=== PATIENT | female | born 1985 ===

== ENCOUNTER → 2021-05-30 09:37 | Outpatient (BNVA) | payer OTHER, SELFPAY | PROVIDERS: PCP Internal Medicine; Visit Provider Nurse Practitioner Family | DX: G43.909 Migraine, unspecified, not intractable, without status migrainosus (principal); R20.2 Paresthesia of skin; R53.1 Weakness; R06.83 Snoring; R40.0 Somnolence | CPT/HCPCS: 99202 ==

== ENCOUNTER 2021-06-21 08:42 | Outpatient (REF) | payer OTHER, SELFPAY | END 2021-06-21 08:43 | disposition home or self-care (01) | LOC: HO.MRI 08:42 | PROVIDERS: Visit Provider Nurse Practitioner Family | DX: Z13.89 Encounter for screening for other disorder (principal) ==

== ENCOUNTER 2022-09-22 20:31 | Emergency (ER) | payer OTHER, SELFPAY ==
--- NOTE | ~2022-09-22 | XR_ITS ---
EXAMINATION: XR FINGER, LEFT CLINICAL INFORMATION: Trauma. Pain. COMPARISON: None available. TECHNIQUE: 3 views of the left 2nd digit. FINDINGS: The bones and soft tissues are normal. No fracture. Alignment is anatomic. Joint spaces are maintained. XR/XR finger LT min 2V IMPRESSION: No significant abnormality identified.
--- NOTE | ~2022-09-22 | XR_ITS ---
EXAMINATION: XR SHOULDER, RIGHT CLINICAL INFORMATION: Dog bite COMPARISON: None available. TECHNIQUE: Three views of the right shoulder. FINDINGS: The bones and soft tissues are normal. No fracture. Glenohumeral and acromioclavicular alignment is anatomic with normal joint space. No abnormal soft tissue calcifications. XR/XR shoulder RT min 2V IMPRESSION: Normal right shoulder.
--- NOTE | ~2022-09-22 | XR_ITS ---
EXAMINATION: XR FOREARM, RIGHT CLINICAL INFORMATION: Dog bite COMPARISON: None available. TECHNIQUE: AP and lateral views of the right forearm were obtained. FINDINGS: Bone alignment is normal. No fracture or dislocation. Normal joint spaces. There is a faintly radiopaque density in the soft tissues of the radial or lateral and volar forearm measuring 2 x 4 mm. This may be in the region of soft tissue trauma. There is a 2 x 4 mm radiopaque density projecting over the soft tissues of the volar wrist appreciated on the lateral view only. XR/XR forearm RT 2V IMPRESSION: No fracture or dislocation. Two 2 x 4 mm radiopaque densities in the soft tissues as described above.
[2022-09-22 21:34] VITALS: BP 178/108; PULSE 90; O2SAT 98
[2022-09-22 21:40] VITALS: BP 154/66; PULSE 63; RESP 18; TEMP 36.9; O2SAT 100; BMI 41.8
[2022-09-22] MEDS: Acetaminophen 325 MG TABLET 975 MG PO (21:52)
[2022-09-22] MEDS: Ibuprofen 800 MG TABLET PO (22:32)
--- NOTE | 2022-09-22 22:33 | ED.GENADULT ---
HPI - General Adult General Chief complaint: Animal Bite Stated complaint: DOG BITE TO R FOREARM Time Seen by Provider: 09/22/22 22:06 Source: patient, RN notes reviewed and old records reviewed Mode of arrival: ambulatory Limitations: no limitations History of Present Illness HPI narrative: 37-year-old female presents for evaluation a dog bite. Patient reports that her daughter fell down the stairs and was screaming in pain. When the patient went to help her daughter ?I think the dog thought that I was hurting her so attacked me. ? The dog was a family dog is up to date on its vaccines Is a diallo retriever The patient was bit mostly on the right forearm She has 1 puncture wound of the left hand She has a scratch on her right thigh The patient is unsure when her last tetanus shot was She reports pain mostly to the right hand/arm but states that her left hand does not hurt She has a penicillin allergy Related Data Home Medications Medication Instructions Recorded Confirmed albuterol sulfate 90 mcg/actuation 2 puff inhalation Q6H PRN 05/30/21 05/30/21 aerosol inhaler fluticasone propionate 50 1 inh inhalation BID 05/30/21 05/30/21 mcg/actuation blister powder for inhalation (Flovent Diskus) Previous Rx's Medication Instructions Recorded magnesium oxide 400 mg (241.3 mg 400 mg PO BEDTIME 30 days #30 tabs 05/30/21 magnesium) tablet riboflavin (vitamin B2) 400 mg 400 mg PO DAILY 30 days #30 tabs 05/30/21 tablet sumatriptan succinate 100 mg tablet 50 - 100 mg PO Q2H PRN migraine 05/30/21 headache 30 days #12 tabs topiramate 25 mg tablet See Rx Instructions PO BEDTIME 30 05/30/21 days #60 tabs alprazolam 0.5 mg tablet 0.5 mg PO BID PRN anxiety 1 day #2 06/25/21 tabs doxycycline hyclate 100 mg tablet 100 mg PO BID #9 tabs 09/22/22 metronidazole 500 mg tablet 500 mg PO TID #14 tabs 09/22/22 Allergies Allergy/AdvReac Type Severity Reaction Status Date / Time Penicillins [PENICILLINS] Allergy Unknown SWELLING Verified 05/30/21 10:24 AND RASH shrimp Allergy Unknown SWELLING Verified 05/30/21 10:24 From REGLAN Allergy Unknown AGITATION Uncoded 11/03/19 18:13 pcn Allergy Unknown rash Uncoded 11/15/12 00:00 Review of Systems Musculoskeletal: Musculoskeletal: Reports arthralgias, Reports joint swelling, Reports limited range of motion, Reports radiating pain into limb and Reports stiffness Integumentary/Breasts: Skin/Breast: Reports wounds PMFSH Past Medical History Surgical History (Updated 05/30/21 @ 10:26 by DANDRE Garcia) Hx of cholecystectomy Social History Social History (Updated 05/30/21 @ 10:26 by DANDRE Garcia) Alcohol intake: current Alcohol intake frequency: holidays/special occasions only Patient Tobacco Use Status: Never used Tobacco Advance Directives: No Advance Directives Information Provided: No Physical Exam ED Vital Signs: Vital Signs - 24 hr 09/22/22 21:40 Temperature 98.5 F Pulse Rate 63 Respiratory Rate 18 Blood Pressure 154/66 H Pulse Oximetry 100 Oxygen Delivery Method Room Air BMI result Body Mass Index 41.8 Const General: healthy appearing, comfortable, no acute distress, alert and awake Nutritional Appearance: well nourished Orientation/consciousness: patient oriented x3 HENMT Head: Yes normocephalic and Yes atraumatic Eyes Eyelids: Yes eyelids normal Conjunctivae: conjunctivae normal Sclerae: sclerae normal Corneas: corneas normal Pupils: Equal, round and reactive pupils present EOM: EOMs intact bilaterally Neck Neck: Yes full ROM Resp Effort & Inspection: normal respiratory effort, able to speak in complete sentences and not labored Skin Other: Patient has a small, 1 cm laceration to the dorsal surface of the right forearm with minimal bleeding. She has a small, superficial puncture wound to the right ventral forearm, no active bleeding. There is a 1 cm linear laceration the left 2nd finger on the dorsal surface just distal to the MCP joint. Very minimal active bleeding. Patient has a very superficial abrasion to right anterior upper leg and right posterior upper leg. She is able to move all extremities. She has some pain in her right shoulder when lifting her right upper extremity above the shoulder. General skin exam: elasticity normal Neuro General: patient oriented x3 Cranial nerves: Yes Equal, round and reactive pupils present and Yes Bilaterally intact EOM present Cognition (Neuro): normal cognition Course Reevaluation(s) Reevaluation #1: By radiology reports concern for radiopaque foreign body in the right forearm. This is not appreciable on exam. The wounds were cleaned, thoroughly irrigated Time: 23:07 Medications Administered Discontinued Medications Generic Name Dose Route Start Last Admin Trade Name Eugene PRN Reason Stop Dose Admin Acetaminophen 975 mg 09/22/22 21:46 09/22/22 21:52 Acetaminophen 325 Mg Tablet PO 09/22/22 21:47 975 mg ONCE ONE Administration Diphtheria/Tetanus/Acell Pertussis 0.5 ml 09/22/22 22:30 09/22/22 22:37 Diphth,Pertus(Acell),Tet Adult 0.5 Ml Syringe IM 09/22/22 22:31 0.5 ml .ONCE ONE Administration Doxycycline Monohydrate 100 mg 09/22/22 22:30 09/22/22 22:37 Doxycycline Monohydrate 100 Mg Capsule PO 09/22/22 22:31 100 mg ONCE ONE Administration Ibuprofen 800 mg 09/22/22 22:27 09/22/22 22:32 Ibuprofen 800 Mg Tablet PO 09/22/22 22:28 800 mg ONCE ONE Administration Metronidazole 500 mg 09/22/22 22:30 09/22/22 22:37 Metronidazole 500 Mg Tablet PO 09/22/22 22:31 500 mg ONCE ONE Administration Medical Decision Making Medical Decision Making MDM Narrative: 37-year-old female presents for evaluation of a dog bite. The dog is up-to-date on vaccine as it is their family dog. The patient has 2 small lacerations, both 1 cm or less that do not require sutures as it was a dog bite and there is a high risk of infection. No large, gaping wounds that would require secondary closure. Patient's tetanus shot was updated. X-rays of the right forearm and shoulder were ordered in triage. I added on an x-ray of the left 2nd finger given this area has a laceration and is edematous to rule out open fracture. The patient will be discharged on antibiotics regardless as the bite is over a joint. The patient be discharged with doxycycline and metronidazole and she has an allergy to penicillin. Differential Diagnosis Dog bite Puncture wound Laceration Contusion Hand sprain Fracture Dislocation Independent Interpretation I performed an independent interpretation of an: Plain X-Ray (No obvious fracture to the right shoulder or forearm) Radiology Impression Discussion of test interpretation with radiology: I have reviewed the radiologist's reading. Radiologist Impression: Concern for radiopaque foreign body in the right forearm. Discharge Plan Discharge Clinical Impression: Dog bite of arm Patient Disposition: Home, Self-Care Instructions: Animal Bite (ED) Additional Instructions: Take both antibiotics as directed Do not drink alcohol while taking these antibiotics, as it will make you very sick Your tetanus was updated today Use ibuprofen or Tylenol for pain Follow-up with your primary doctor Prescriptions: New doxycycline hyclate 100 mg tablet 100 mg PO BID Qty: 9 0RF metronidazole 500 mg tablet 500 mg PO TID Qty: 14 0RF No Action alprazolam 0.5 mg tablet 0.5 mg PO BID PRN (Reason: anxiety) 1 Days Qty: 2 0RF Rx Instructions: 30 minutes before MRI, may repeat x's 1 albuterol sulfate 90 mcg/actuation HFA aerosol inhaler 2 puff inhalation Q6H PRN Flovent Diskus 50 mcg/actuation blister with device 1 inh inhalation BID magnesium oxide 400 mg (241.3 mg magnesium) tablet 400 mg PO BEDTIME 30 Days Qty: 30 6RF riboflavin (vitamin B2) 400 mg tablet 400 mg PO DAILY 30 Days Qty: 30 6RF topiramate 25 mg tablet See Rx Instructions PO BEDTIME 30 Days Qty: 60 3RF Rx Instructions: 1 tab qhs x's 2 weeks, then 2 tabs qhs PO bedtime; sumatriptan succinate 100 mg tablet 50 - 100 mg PO Q2H PRN (Reason: migraine headache) 30 Days Qty: 12 3RF Rx Instructions: at onset of migraine, may repeat in 2 hrs, max 2 tabs/day and 4 tabs/week
[2022-09-22] MEDS: metroNIDAZOLE 500 MG TABLET PO (22:37)
[2022-09-22] MEDS: Diphth,Pertus(ACell),Tet Adult 0.5 ML SYRINGE IM (22:37)
[2022-09-22] MEDS: Doxycycline Monohydrate 100 MG CAPSULE PO (22:37)
--- NOTE | 2022-09-22 22:41 | PC.NURSE ---
pt medicated per APR- tetanus adm to left deltoid
== END 2022-09-22 23:52 | disposition home or self-care (01) ==
PROVIDERS: Emergency Provider Internal Medicine; PCP Internal Medicine
DX: S51.831A Puncture wound without foreign body of right forearm, initial encounter (principal); W54.0XXA Bitten by dog, initial encounter; Y93.9 Activity, unspecified; Y92.9 Unspecified place or not applicable; Y99.9 Unspecified external cause status
CPT/HCPCS: 73030; 73090; 73140; 90471; 90715; 99283; 99284

== ENCOUNTER 2022-11-07 19:36 | Emergency (ER) | payer OTHER, SELFPAY ==
--- NOTE | 2022-11-07 | ECG_ITS ---
Test Reason : CHEST PAIN Blood Pressure : / mmHG Vent. Rate : 107 BPM Atrial Rate : 174 BPM P-R Int : 128 ms QRS Dur : 078 ms QT Int : 468 ms P-R-T Axes : 016 014 047 degrees QTc Int : 624 ms Sinus tachycardia with Premature atrial complexes with Aberrant conduction Prolonged QT Abnormal ECG When compared with ECG of 06-MAR-2011 20:43, Aberrant conduction is now Present Vent. rate has increased BY 46 BPM QT has lengthened Referred By: Generic ED Physician Electronically Signed By:TORREY VILLANUEVA
--- NOTE | ~2022-11-07 | XR_ITS ---
EXAMINATION: XR CHEST CLINICAL INFORMATION: Chest pain. COMPARISON: 03/06/2011 TECHNIQUE: Frontal view of the chest was obtained. FINDINGS: The cardiomediastinal silhouette is normal. There is no focal lung consolidation or pleural effusion. The bony structures and soft tissues are unremarkable. XR/XR chest 1V IMPRESSION: No active cardiopulmonary disease.
[2022-11-07 19:41] VITALS: BP 127/69; PULSE 92; O2SAT 99
[2022-11-07 20:26] VITALS: BP 144/84; PULSE 81; RESP 16; TEMP 36.9; O2SAT 98; BMI 43.0
--- NOTE | 2022-11-07 20:27 | ED.GENADULT ---
HPI - General Adult General Chief complaint: Chest Pain Stated complaint: chest painx2 days, anxiety Time Seen by Provider: 11/07/22 21:54 Source: patient Mode of arrival: ambulatory Limitations: no limitations History of Present Illness HPI narrative: Patient's history of anxiety been having poor sleep lately also complaining of mid chest pain sharp comes and goes with extra heartbeats feeling no syncope no difference with movements or deep breath no history of coronary disease or risk factors Related Data Home Medications Medication Instructions Recorded Confirmed albuterol sulfate 90 mcg/actuation 2 puff inhalation Q6H PRN 05/30/21 05/30/21 aerosol inhaler fluticasone propionate 50 1 inh inhalation BID 05/30/21 05/30/21 mcg/actuation blister powder for inhalation (Flovent Diskus) Previous Rx's Medication Instructions Recorded magnesium oxide 400 mg (241.3 mg 400 mg PO BEDTIME 30 days #30 tabs 05/30/21 magnesium) tablet riboflavin (vitamin B2) 400 mg 400 mg PO DAILY 30 days #30 tabs 05/30/21 tablet sumatriptan succinate 100 mg tablet 50 - 100 mg (0.5 - 1 x 100 mg) PO 05/30/21 Q2H PRN migraine headache 30 days #12 tabs topiramate 25 mg tablet See Rx Instructions PO BEDTIME 30 05/30/21 days #60 tabs alprazolam 0.5 mg tablet 0.5 mg PO BID PRN anxiety 1 day #2 06/25/21 tabs doxycycline hyclate 100 mg tablet 100 mg PO BID #9 tabs 09/22/22 metronidazole 500 mg tablet 500 mg PO TID #14 tabs 09/22/22 alprazolam 0.5 mg tablet (Xanax) 0.5 mg PO BID PRN anxiety #20 tabs 11/07/22 Allergies Allergy/AdvReac Type Severity Reaction Status Date / Time Penicillins [PENICILLINS] Allergy Unknown SWELLING Verified 11/07/22 20:26 AND RASH shrimp Allergy Unknown SWELLING Verified 11/07/22 20:26 From REGLAN Allergy Unknown AGITATION Uncoded 11/07/22 20:26 pcn Allergy Unknown rash Uncoded 11/07/22 20:26 Review of Systems Review of Systems: Yes all other systems are reviewed and are negative PMFSH Past Medical History Surgical History Hx of cholecystectomy Social History Social History Alcohol intake: never Patient Tobacco Use Status: Never used Tobacco Smoked in Last 30 Days: No Use of substances other than those prescribed or required for medical reasons: Yes Substance Use Type: Marijuana Advance Directives: No Advance Directives Information Provided: Yes Physical Exam ED Vital Signs: Vital Signs - 24 hr 11/07/22 20:26 Temperature 98.4 F Pulse Rate 81 Respiratory Rate 16 Blood Pressure 144/84 H Pulse Oximetry 98 Oxygen Delivery Method Room Air BMI result Body Mass Index 43.0 Appearance: Alert. Oriented X3. No acute distress anxious Eyes: PERRLA, No Nystagmus ENT: Pharynx normal. Oral Mucosa moist Neck: Normal inspection. Neck supple. CVS: Normal heart rate and rhythm. Pulses normal. Respiratory: No respiratory distress. Equal air entry bilateral, no wheezing/rales/rhonchi Abdomen: Soft and nontender. Bowel sounds are present, no mass palpable, no CVA tenderness Skin: Skin warm and dry. Normal skin color. Normal skin turgor. Extremities: No lower extremity edema. No calf tenderness Neuro: Oriented X 3. No motor deficit. No sensory deficit.No cerebellar signs , cranial nerves II-XII intact Course Course Course Narrative: This is an RME: Additional HPI, ROS, PE not included below will be deferred to primary provider. 37-year-old female presents with anxiety, chest pain, syncope, patient reports she has been having chest discomfort substernal nature of the past few days, today prior to coming to the emergency department her cousin got bit by a dog, she watched she got nervous, ended up passing out, since then chest pain worsening. No head strike that she knows of. Physical examination benign Plan labs, imaging Medications Administered Discontinued Medications Generic Name Dose Route Start Last Admin Trade Name Freq PRN Reason Stop Dose Admin Lorazepam 1 mg 11/07/22 22:23 11/07/22 22:43 Lorazepam 1 Mg Tablet PO 11/07/22 22:24 1 mg ONCE ONE Administration Medical Decision Making Medical Decision Making MDM Narrative: Patient has increased anxiety does not have any anxiety medication at home unable to sleep for last few days comes with atypical chest pain lasting for few seconds sharp pain normal cardiogram normal high sensitive troponin discharge patient home on alprazolam for anxiety Differential Diagnosis Differential Diagnoses: The differential diagnosis associated with the presentation includes ACS/pericarditis/anxiety Lab Data MDM Lab Attestation statement: I reviewed the patient's lab results. 11/07/22 21:01 11/07/22 21:01 Labs: Lab Results 11/07/22 Range/Units 21:01 WBC 11.7 H (4.8-10.8) X10*3/uL RBC 4.81 (4.20-5.50) X10*6/uL Hgb 13.5 (12.0-16.0) g/dl Hct 41.4 (37.0-47.0) % MCV 86.1 (80.0-98.0) fL MCH 28.1 (27.0-33.0) pg MCHC 32.6 (31.0-35.0) g/dl RDW 12.7 (11.0-16.0) % Plt Count 274 (160-400) X10*3/uL MPV 10.2 (9.4-12.3) fL Immature Gran % (Auto) 0.4 (0.0-0.4) % Neut % (Auto) 79.2 H (45-73) % Lymph % (Auto) 14.1 L (20-40) % [place] % (Auto) 5.5 (2-11) % Eos % (Auto) 0.5 (0-4) % Baso % (Auto) 0.3 (0-2) % Lymph # (Auto) 1.7 (1.2-4.9) X10*3/uL [place] # (Auto) 0.7 (0.1-1.2) X10*3/uL Eos # (Auto) 0.1 (0.0-0.4) X10*3/uL Baso # (Auto) 0.0 (0.0-0.2) X10*3/uL Abs Immat Gran (auto) 0.05 H (0.00-0.03) X10*3/uL Absolute Neuts (auto) 9.3 H (2.0-8.3) x10*3/uL Absolute Nucleated RBC 0.000 (0.0-0.012) X10*3/uL Nucleated RBC % (auto) 0.0 (0.0-0.2) /100WBC Sodium 139 (135-145) mmol/L Potassium 4.1 (3.3-5.1) mmol/L Chloride 107 (96-108) mmol/L Carbon Dioxide 21 L (22-29) mmol/L Anion Gap 15 (12-20) BUN 13 (9-16) mg/dL Creatinine 0.94 (0.5-1.4) mg/dL Estim Creat Clear Calc 97.7 Estimated GFR > 60 Random Glucose 100 (60-115) mg/dL Calcium 9.4 (8.4-10.2) mg/dL Magnesium 2.0 (1.6-2.6) mg/dL Total Bilirubin 0.3 (0.0-1.0) mg/dL AST 14 (5-31) U/L ALT 11 (0-31) U/L Alkaline Phosphatase 70 (39-117) U/L Troponin I High Sens < 2.7 (<3.5-17.0) ng/L B-Natriuretic Peptide 24 (<100) pg/mL Total Protein 7.9 (6.5-8.0) g/dL Albumin 4.2 (3.5-5.0) g/dL Independent Interpretation I performed an independent interpretation of an: EKG Interpretation: Sinus tachycardia with PACs heart rate 107 no acute injury of change in no acute ischemia Discharge Plan Discharge Clinical Impression: Atypical chest pain, Anxiety Patient Disposition: Home, Self-Care Instructions: Chest Pain (ED), Anxiety (ED) Additional Instructions: Rest at home Medication for anxiety as prescribed Follow-up with PCP if any concerns Prescriptions: New alprazolam [Xanax] 0.5 mg tablet 0.5 mg PO BID PRN (Reason: anxiety) Qty: 20 0RF No Action alprazolam 0.5 mg tablet 0.5 mg PO BID PRN (Reason: anxiety) 1 Days Qty: 2 0RF Rx Instructions: 30 minutes before MRI, may repeat x's 1 doxycycline hyclate 100 mg tablet 100 mg PO BID Qty: 9 0RF metronidazole 500 mg tablet 500 mg PO TID Qty: 14 0RF albuterol sulfate 90 mcg/actuation HFA aerosol inhaler 2 puff inhalation Q6H PRN Flovent Diskus 50 mcg/actuation blister with device 1 inh inhalation BID magnesium oxide 400 mg (241.3 mg magnesium) tablet 400 mg PO BEDTIME 30 Days Qty: 30 6RF riboflavin (vitamin B2) 400 mg tablet 400 mg PO DAILY 30 Days Qty: 30 6RF topiramate 25 mg tablet See Rx Instructions PO BEDTIME 30 Days Qty: 60 3RF Rx Instructions: 1 tab qhs x's 2 weeks, then 2 tabs qhs PO bedtime; sumatriptan succinate 100 mg tablet 50 - 100 mg PO Q2H PRN (Reason: migraine headache) 30 Days Qty: 12 3RF Rx Instructions: at onset of migraine, may repeat in 2 hrs, max 2 tabs/day and 4 tabs/week Interventions: ED Discharge Assessment Last Done: 11/07/22 23:31 Discharge Date/Time: 11/07/22 23:31
[2022-11-07 21:08] LABS: MANUAL DIFF FLAG NO
[2022-11-07 21:13] LABS: Basophils Percent Auto 0.3 % (0-2); Eosinophils Absolute Auto 0.1 X10*3/uL (0.0-0.4); Eosinophils Percent Auto 0.5 % (0-4); Hematocrit 41.4 % (37.0-47.0); Hemoglobin 13.5 g/dl (12.0-16.0); Imm Gran Abs Auto 0.05 X10*3/uL (0.00-0.03); Imm Gran Pct Auto 0.4 % (0.0-0.4); Lymphocytes Absolute Auto 1.7 X10*3/uL (1.2-4.9); Lymphocytes Percent Auto 14.1 % (20-40); Mean Corpuscular HGB Conc 32.6 g/dl (31.0-35.0); Mean Corpuscular Hemoglobin 28.1 pg (27.0-33.0); Mean Corpuscular Volume 86.1 fL (80.0-98.0); Mean Platelet Volume 10.2 fL (9.4-12.3); Monocytes Absolute Auto 0.7 X10*3/uL (0.1-1.2); Monocytes Percent Auto 5.5 % (2-11); Neutrophils Absolute Auto 9.3 x10*3/uL (2.0-8.3); Neutrophils Percent Auto 79.2 % (45-73); Platelet Count 274 X10*3/uL (160-400); Red Blood Count 4.81 X10*6/uL (4.20-5.50); Red Cell Distribution Width 12.7 % (11.0-16.0); White Blood Count 11.7 X10*3/uL (4.8-10.8)
[2022-11-07 21:28] LABS: Alanine Aminotransferase 11 U/L (0-31); Albumin Level 4.2 g/dL (3.5-5.0); Alkaline Phosphatase 70 U/L (39-117); Anion Gap 15 (12-20); Aspartate Amino Transferase 14 U/L (5-31); Bilirubin Total 0.3 mg/dL (0.0-1.0); Blood Urea Nitrogen 13 mg/dL (9-16); Calcium 9.4 mg/dL (8.4-10.2); Carbon Dioxide 21 mmol/L (22-29); Chloride 107 mmol/L (96-108); Creatinine Clr Calc Pharmacy 97.7; Estimated Glomerular Filt Rate > 60; Glucose Random 100 mg/dL (60-115); Potassium 4.1 mmol/L (3.3-5.1); Sodium 139 mmol/L (135-145); Total Protein 7.9 g/dL (6.5-8.0)
[2022-11-07 21:31] LABS: B Type Natriuretic Peptide 24 pg/mL (<100)
[2022-11-07 21:37] LABS: Troponin-I High Sensitivity < 2.7 ng/L (<3.5-17.0)
--- NOTE | 2022-11-07 21:43 | PC.NURSE ---
pt brought back to room 3, states her anxiety is resolving and chest pressure is also improving 07/26. steady gait, alert oriented, skin pink warm and dry.
[2022-11-07] MEDS: LORazepam 1 MG TABLET PO (22:43)
== END 2022-11-07 23:31 | disposition home or self-care (01) ==
PROVIDERS: Physician Assistant; Emergency Provider Internal Medicine; PCP Internal Medicine
DX: R07.89 Other chest pain (principal); R00.0 Tachycardia, unspecified; F41.1 Generalized anxiety disorder; F43.0 Acute stress reaction; R06.02 Shortness of breath; Z79.899 Other long term (current) drug therapy
CPT/HCPCS: 36415; 71045; 80053; 83735; 83880; 84484; 85025; 93005; 99283; 99284

== ENCOUNTER 2023-01-26 17:23 | Emergency (ER) | payer OTHER, SELFPAY ==
--- NOTE | ~2023-01-26 | XR_ITS ---
Examination: XR hand wrist RT, XR forearm RT 2V Indication: Dog by rule out foreign body Comparison: No pertinent prior studies are currently available for comparison. Technique: 2 views of the right forearm and 5 views of the right hand/wrist. Findings: Soft tissue bandage material overlying the forearm and wrist. Bones are in normal anatomic alignment. I do not appreciate any acute fracture or dislocation. Mild ulnar negative variance of the wrist. On the lateral view of the hand/wrist, there is a small well-corticated 3 mm radiopaque foreign body seen in the superficial soft tissues of uncertain etiology or acuteness. The subtle 3 mm radiopaque foreign body is seen on the lateral view at the level of the distal carpal row but am uncertain if this is in the thenar eminence or hypothenar eminence from this orientation. Unfortunately this is not able to be seen on the other obliquities. XR/XR forearm RT 2V Impression: 3 mm well-corticated radiopaque foreign body seen in the superficial soft tissues of the hand/wrist on the lateral view of uncertain etiology or acuteness. The subtle finding seen on the lateral view at the level of the distal carpal row is not able to be seen on the other obliquities.
--- NOTE | ~2023-01-26 | XR_ITS ---
Examination: XR hand wrist RT, XR forearm RT 2V Indication: Dog by rule out foreign body Comparison: No pertinent prior studies are currently available for comparison. Technique: 2 views of the right forearm and 5 views of the right hand/wrist. Findings: Soft tissue bandage material overlying the forearm and wrist. Bones are in normal anatomic alignment. I do not appreciate any acute fracture or dislocation. Mild ulnar negative variance of the wrist. On the lateral view of the hand/wrist, there is a small well-corticated 3 mm radiopaque foreign body seen in the superficial soft tissues of uncertain etiology or acuteness. The subtle 3 mm radiopaque foreign body is seen on the lateral view at the level of the distal carpal row but am uncertain if this is in the thenar eminence or hypothenar eminence from this orientation. Unfortunately this is not able to be seen on the other obliquities. XR/XR hand wrist RT Impression: 3 mm well-corticated radiopaque foreign body seen in the superficial soft tissues of the hand/wrist on the lateral view of uncertain etiology or acuteness. The subtle finding seen on the lateral view at the level of the distal carpal row is not able to be seen on the other obliquities.
[2023-01-26 17:35] VITALS: BP 158/88; PULSE 78; O2SAT 98
[2023-01-26 18:08] VITALS: BP 156/95; PULSE 66; RESP 20; TEMP 36.4; O2SAT 98; BMI 42.7
--- NOTE | 2023-01-26 18:12 | ED_ITS ---
HPI - Animal Bite General Chief Complaint: Animal Bite Stated Complaint: BIT IN ARM BY [employer] Time Seen by Provider: 01/26/23 19:30 Source: patient Mode of arrival: EMS Limitations: no limitations History of Present Illness HPI narrative: Patient comes to the emergency room after sustaining multiple dog bites in the right forearm. Patient states that this dog was her own dog. The dog has history of being aggressive. Patient has bitten someone in the family at least 10 times. Today, the family decided to call the dog pound and euthanize the dog a severe unprovoked aggression. Patient was seen here about 3 months ago for the same complaint, patient was bitten by her dog, when her last visit patient got a Tdap on 09/22/2022 Related Data Home Medications Medication Instructions Recorded Confirmed albuterol sulfate 90 mcg/actuation 2 puff inhalation Q6H PRN 05/30/21 05/30/21 aerosol inhaler fluticasone propionate 50 1 inh inhalation BID 05/30/21 05/30/21 mcg/actuation blister powder for inhalation (Flovent Diskus) Previous Rx's Medication Instructions Recorded magnesium oxide 400 mg (241.3 mg 400 mg PO BEDTIME 30 days #30 tabs 05/30/21 magnesium) tablet riboflavin (vitamin B2) 400 mg 400 mg PO DAILY 30 days #30 tabs 05/30/21 tablet sumatriptan succinate 100 mg tablet 50 - 100 mg (0.5 - 1 x 100 mg) PO 05/30/21 Q2H PRN migraine headache 30 days #12 tabs topiramate 25 mg tablet See Rx Instructions PO BEDTIME 30 05/30/21 days #60 tabs alprazolam 0.5 mg tablet 0.5 mg PO BID PRN anxiety 1 day #2 06/25/21 tabs doxycycline hyclate 100 mg tablet 100 mg PO BID #9 tabs 09/22/22 metronidazole 500 mg tablet 500 mg PO TID #14 tabs 09/22/22 alprazolam 0.5 mg tablet (Xanax) 0.5 mg PO BID PRN anxiety #20 tabs 11/07/22 doxycycline hyclate 100 mg capsule 100 mg PO BID #14 caps 01/26/23 ibuprofen 600 mg tablet 600 mg PO TID PRN fever or pain 01/26/23 #20 tabs metronidazole 500 mg tablet 500 mg PO BID #14 tabs 01/26/23 Allergies Allergy/AdvReac Type Severity Reaction Status Date / Time Penicillins [PENICILLINS] Allergy Unknown SWELLING Verified 01/26/23 18:12 AND RASH shrimp Allergy Unknown SWELLING Verified 01/26/23 18:12 From REGLAN Allergy Unknown AGITATION Uncoded 11/07/22 20:26 pcn Allergy Unknown rash Uncoded 11/07/22 20:26 Review of Systems Review of Systems: Constitutional : No Weight loss, No Fever, No Chills, No Night Sweats, No Fatigue, No Malaise ENT/Mouth : No Hearing loss, No Ear Pain, No Nasal Congestion, No Sinus Pain, No Hoarseness, No sore throat, No Rhinorrhea, No Swallowing Difficulty Eyes: No Eye Pain, No Swelling, No Redness, No Foreign Body, No Discharge, No Vision Changes Cardiovascular : No Chest Pain, No SOB, No Dyspnea on Exertion, No Orthopnea, No Edema, No Palpitations Respiratory : No Cough, No Sputum, No Wheezing, No Smoke Exposure, No Dyspnea Gastrointestinal : No Nausea, No Vomiting, No Diarrhea, No Constipation, No abdominal Pain, No Hematochezia, No Melena Genitourinary : no irregular bleeding, No Dysuria, No Urinary Frequency, No Hematuria, No Urinary Incontinence, No Urgency, No Flank Pain, No Urinary Flow Changes, No Hesitancy Musculoskeletal : No joint pain, No Myalgias, No Joint Swelling Skin : Multiple dog bites large puncture wounds to the right forearm Neuro : No Weakness, No Numbness, No Paresthesias, No Loss of Consciousness, No Dizziness, No Headache Psych : No Anxiety/Panic, No Depression, No SI/HI/AH/VH, No Social Issues, Heme/Lymph: No Bruising, No Bleeding,No Lymphadenopathy Endocrine : No Polyuria, No Polydipsia, No Temperature Intolerance PMFSH Past Medical History Surgical History Hx of cholecystectomy Social History Social History Alcohol intake: never Patient Tobacco Use Status: Never used Tobacco Substance Use Type: Marijuana Advance Directives: No Advance Directives Information Provided: No Physical Exam ED Vital Signs: Vital Signs - 24 hr 01/26/23 18:08 01/26/23 20:23 Temperature 97.5 F 97.8 F Pulse Rate 66 62 Respiratory Rate 20 19 Blood Pressure 156/95 H 145/72 H Pulse Oximetry 98 97 Oxygen Delivery Method Room Air Room Air BMI result Body Mass Index 42.7 Const Other: Appearance: Alert. Oriented X3. No acute distress. Eyes: Pupils equal, round and reactive to light. ENT: Pharynx normal. Neck: Normal inspection. Neck supple. No lymph nodes noted. No crepitus CVS: Normal heart rate and rhythm. Pulses normal. Normal S1 and S2 Respiratory: No respiratory distress. Breath sounds normal. No Wheezing. No rales Abdomen: Soft and nontender. No rigidity. No distention. Skin: Skin warm and dry. Patient has multiple dog bites/puncture wounds to the forearm between the wrist and the elbow. Bleeding controlled Extremities: No lower extremity edema. No Lacerations. No Rash Neuro: Oriented X 3. No motor deficit. No sensory deficit. Moving all extremities. No slurred speech. CN 2 through 12 grossly intact Psych: calm, cooperative, normal affect Course Course Course Narrative: Patient complains of bite to the right forearm and right hand from her own dog, dog had not got most up-to-date rabies shot as that thought the dog was too aggressive She denies other injury X-rays ordered to rule out foreign body This is rapid medical exam in triage pending full evaluation by ER provider Medications Administered Discontinued Medications Generic Name Dose Route Start Last Admin Trade Name Freq PRN Reason Stop Dose Admin Doxycycline Monohydrate 100 mg 01/26/23 20:10 01/26/23 20:23 Doxycycline Monohydrate 100 Mg Capsule PO 01/26/23 20:11 100 mg ONCE ONE Administration Ibuprofen 600 mg 01/26/23 20:10 01/26/23 20:23 Ibuprofen 600 Mg Tablet PO 01/26/23 20:11 600 mg ONCE ONE Administration Metronidazole 500 mg 01/26/23 20:10 01/26/23 20:23 Metronidazole 500 Mg Tablet PO 01/26/23 20:11 500 mg ONCE ONE Administration Medical Decision Making Medical Decision Making [facility] Narrative: -I discussed the physical exam with the patient, patient has multiple wounds. All of them are less than 1 cm. I discussed with the patient the discs are contaminated wounds and therefore we will not be stitching them. -patient's arm was soaked in betadine solution Patient has anaphylaxis to penicillins, patient was given p.o. metronidazole and doxycycline Discharge Plan Discharge Clinical Impression: Dog bite Patient Disposition: Home, Self-Care Instructions: Animal Bite (ED) Additional Instructions: If you see any signs of infection such as redness, pus drainage, fever chills, please return immediately to the emergency room peer Please follow-up with your primary care physician tomorrow. If you have any worsening or new symptoms, please return to the emergency room or call 911 Prescriptions: New metronidazole 500 mg tablet 500 mg PO BID Qty: 14 0RF doxycycline hyclate 100 mg capsule 100 mg PO BID Qty: 14 0RF ibuprofen 600 mg tablet 600 mg PO TID PRN (Reason: fever or pain) Qty: 20 0RF No Action alprazolam 0.5 mg tablet 0.5 mg PO BID PRN (Reason: anxiety) 1 Days Qty: 2 0RF Rx Instructions: 30 minutes before MRI, may repeat x's 1 alprazolam [Xanax] 0.5 mg tablet 0.5 mg PO BID PRN (Reason: anxiety) Qty: 20 0RF doxycycline hyclate 100 mg tablet 100 mg PO BID Qty: 9 0RF metronidazole 500 mg tablet 500 mg PO TID Qty: 14 0RF albuterol sulfate 90 mcg/actuation HFA aerosol inhaler 2 puff inhalation Q6H PRN Flovent Diskus 50 mcg/actuation blister with device 1 inh inhalation BID magnesium oxide 400 mg (241.3 mg magnesium) tablet 400 mg PO BEDTIME 30 Days Qty: 30 6RF riboflavin (vitamin B2) 400 mg tablet 400 mg PO DAILY 30 Days Qty: 30 6RF topiramate 25 mg tablet See Rx Instructions PO BEDTIME 30 Days Qty: 60 3RF Rx Instructions: 1 tab qhs x's 2 weeks, then 2 tabs qhs PO bedtime; sumatriptan succinate 100 mg tablet 50 - 100 mg PO Q2H PRN (Reason: migraine headache) 30 Days Qty: 12 3RF Rx Instructions: at onset of migraine, may repeat in 2 hrs, max 2 tabs/day and 4 tabs/week
[2023-01-26 20:23] VITALS: BP 145/72; PULSE 62; RESP 19; TEMP 36.6; O2SAT 97
[2023-01-26] MEDS: Doxycycline Monohydrate 100 MG CAPSULE PO (20:23)
[2023-01-26] MEDS: Ibuprofen 600 MG TABLET PO (20:23)
[2023-01-26] MEDS: metroNIDAZOLE 500 MG TABLET PO (20:23)
== END 2023-01-26 21:12 | disposition home or self-care (01) ==
PROVIDERS: Emergency Provider Emergency Medicine; PCP Internal Medicine
DX: S51.851A Open bite of right forearm, initial encounter (principal); S61.451A Open bite of right hand, initial encounter; W54.0XXA Bitten by dog, initial encounter; Y93.9 Activity, unspecified; Y92.039 Unspecified place in apartment as the place of occurrence of the external cause; Y99.9 Unspecified external cause status
CPT/HCPCS: 73090; 73110; 73130; 99283